=== PATIENT | female | born 1950 | race Caucasian/White ===

== ENCOUNTER 2019-01-09 06:22 | Inpatient (IN) | payer MEDICARE, OTHER ==
[2019-01-09] MEDS ORDERED: Acetaminophen 500 MG Tab PO ONE (06:30)
[2019-01-09] MEDS ORDERED: Scopolamine 1.5 MG Transdermal Patch TOP SCH (06:30)
[2019-01-09] MEDS ORDERED: Gabapentin 300 MG Cap PO ONE (06:30)
[2019-01-09] MEDS ORDERED: Celecoxib 200 MG Cap PO ONE (06:30)
[2019-01-09] MEDS ORDERED: cefOXitin 2 GM Vial ONE (06:35)
[2019-01-09] MEDS ORDERED: Glycopyrrolate 0.2 MG/ML 5 ML MDV ONE (07:10)
[2019-01-09] MEDS ORDERED: Succinylcholine 200 MG/10 ML MDV ONE (07:10)
[2019-01-09] MEDS ORDERED: Rocuronium 50 MG/5 ML Vial ONE (07:10)
[2019-01-09] MEDS ORDERED: Neostigmine Methylsulfate 1 MG/ML 5 ML Syringe ONE (07:10)
[2019-01-09] MEDS ORDERED: Dexamethasone 4 MG/ML SDV ONE (07:10)
[2019-01-09] MEDS ORDERED: Propofol 200 MG/20 ML SDV ONE (07:10)
[2019-01-09] MEDS ORDERED: Ondansetron 4 MG/2 ML SDV ONE (07:10)
[2019-01-09] MEDS ORDERED: Dextrose 5%-Lactated Ringers 1,000 ML IV SCH (07:30)
[2019-01-09] MEDS ORDERED: cefOXitin 2 GM in Sodium Chloride 0.9% 50 ML IV ONE (08:00)
[2019-01-09] MEDS ORDERED: Ketamine 500 MG/5 ML MDV IV SCH (08:15)
[2019-01-09] MEDS ORDERED: Lidocaine 2% 100 MG/5 ML Syringe IVPUSH SCH (08:15)
[2019-01-09] MEDS ORDERED: Ketamine 50 MG in Sodium Chloride 0.9% 49.5 ML IV SCH (08:15)
[2019-01-09 08:20] LABS: HEMOGLOBIN A1C 5.8 % (4.5-6.2)
[2019-01-09] MEDS ORDERED: hydrOXYzine HCl 100 MG/2 ML SDV IM ONE (10:16)
[2019-01-09] MEDS ORDERED: Ondansetron 4 MG/2 ML SDV IVPUSH ONE (10:43)
[2019-01-09] MEDS ORDERED: Metoclopramide 10 MG/2 ML SDV IVPUSH PRN (12:04)
[2019-01-09] MEDS ORDERED: Labetalol 20 MG/4 ML Syringe IVPUSH PRN (12:04)
[2019-01-09] MEDS ORDERED: HYDROmorphone 0.5 MG/0.5 ML Syringe IVPUSH PRN (12:04)
[2019-01-09] MEDS ORDERED: hydrOXYzine HCl 100 MG/2 ML SDV IM PRN (12:04)
[2019-01-09] MEDS ORDERED: diphenhydrAMINE 50 MG/ML SDV IVPUSH PRN (12:04)
[2019-01-09] MEDS ORDERED: HYDROmorphone 1 MG/ML Syringe IV PRN (12:04)
[2019-01-09] MEDS ORDERED: Ondansetron 4 MG/2 ML SDV IVPUSH PRN (12:04)
[2019-01-09] MEDS: Lidocaine 0.4%/D5W 2 GM/500 ML BAG IV SCH (14:16)
[2019-01-09] MEDS: cefOXitin 2 GM in Sodium Chloride 0.9% 50 ML IV SCH ×2 (15:03→21:15)
[2019-01-09] MEDS: Gabapentin 250 MG/5 ML Solution ML 470 ML Bottle PO SCH ×2 (15:03→20:49)
[2019-01-09] MEDS ORDERED: MVI, Adult with Vitamin K 10 ML, Thiamine 200 MG, Chromium/Copper/Mang/Selen/Zn 1 ML in... IV SCH ×4 (16:00)
[2019-01-09] MEDS: Lisinopril 10 MG Tab PO SCH (16:32)
[2019-01-09] MEDS: Acetaminophen 325 MG Tab PO SCH ×2 (16:32→21:16)
[2019-01-09] MEDS: Pantoprazole 40 MG Vial IVPUSH SCH (17:21)
[2019-01-09] MEDS: Heparin Sodium 5,000 Units/ML Vial SUBCUT SCH (17:21)
[2019-01-09] MEDS: Dextrose 5%-Lactated Ringers 1,000 ML IV SCH (21:15)
[2019-01-10] MEDS: Dextrose 5%-Lactated Ringers 1,000 ML IV SCH (03:19)
[2019-01-10] MEDS: Acetaminophen 325 MG Tab PO SCH ×4 (04:02→22:32)
[2019-01-10] MEDS: cefOXitin 2 GM in Sodium Chloride 0.9% 50 ML IV SCH ×3 (04:02→15:29)
--- NOTE | 2019-01-10 05:22 | CRLCR ---
INDICATION: Evaluate Jude-en-Y TECHNIQUE: Abdomen one view, oral contrast administered COMPARISON: None FINDINGS: Oral contrast identified within the gastric pouch and jejunum. No obvious leakage identified. IMPRESSION: Oral contrast present within the gastric pouch jejunum. No evidence for obvious in contrast leakage. Dictated by Osmin Santana MD @ Jan 10 2019 5:19AM Signed by Dr. Osmin Santana @ Jan 10 2019 5:20AM
[2019-01-10] MEDS: Heparin Sodium 5,000 Units/ML Vial SUBCUT SCH ×2 (05:45→17:26)
[2019-01-10] MEDS: Celecoxib 200 MG Cap PO SCH (07:20)
[2019-01-10] MEDS ORDERED: Dextrose 5%-Lactated Ringers 1,000 ML IV SCH (07:45)
[2019-01-10] MEDS: Citalopram 20 MG Tab PO SCH (08:36)
[2019-01-10] MEDS: Lidocaine 0.4%/D5W 2 GM/500 ML BAG IV SCH (08:36)
[2019-01-10] MEDS: buPROPion 100 MG Tab PO SCH ×2 (08:36→20:41)
[2019-01-10] MEDS: SCOPOLAMINE PATCH CHECK TOP SCH (08:37)
[2019-01-10] MEDS: Lisinopril 10 MG Tab PO SCH (08:37)
[2019-01-10] MEDS: Gabapentin 250 MG/5 ML Solution ML 470 ML Bottle PO SCH ×3 (08:40→20:45)
[2019-01-10] MEDS: Levothyroxine 100 MCG, Levothyroxine 25 MCG PO SCH ×2 (11:59)
[2019-01-10] MEDS: MVI, Adult with Vitamin K 10 ML, Thiamine 200 MG, Chromium/Copper/Mang/Selen/Zn 1 ML in... IV SCH ×8 (13:35→15:27)
[2019-01-10] MEDS: Pantoprazole 40 MG Vial IVPUSH SCH (17:26)
[2019-01-11] MEDS: Acetaminophen 325 MG Tab PO SCH ×5 (02:01→21:08)
[2019-01-11] MEDS: Heparin Sodium 5,000 Units/ML Vial SUBCUT SCH ×2 (05:59→17:30)
[2019-01-11] MEDS ORDERED: Ondansetron 4 MG Tab.DIS PO PRN (07:50)
[2019-01-11] MEDS: Levothyroxine 100 MCG, Levothyroxine 25 MCG PO SCH ×2 (08:05)
[2019-01-11] MEDS: Celecoxib 200 MG Cap PO SCH (08:06)
[2019-01-11] MEDS: Gabapentin 250 MG/5 ML Solution ML 470 ML Bottle PO SCH ×3 (08:34→21:08)
[2019-01-11] MEDS: buPROPion 100 MG Tab PO SCH ×2 (08:34→21:08)
[2019-01-11] MEDS: SCOPOLAMINE PATCH CHECK TOP SCH (08:35)
[2019-01-11] MEDS: Citalopram 20 MG Tab PO SCH (08:36)
[2019-01-11] MEDS: Lisinopril 10 MG Tab PO SCH (08:36)
[2019-01-11] MEDS ORDERED: Cyanocobalamin (Vitamin B12) 1,000 MCG/ML SDV IM ONE (09:00)
--- NOTE | 2019-01-11 09:57 | PN ---
CORRECTED REPORT DATE OF SERVICE: 01/11/2019 SUBJECTIVE: Dunia is postoperative day 2. Her pain has been controlled. She has been up ambulating. Vital signs have been stable. Oral intake 1350, urine output 2525, and MASON drain put out 60 mL of a light pink drainage. REVIEW OF SYSTEMS: Remainder of review of systems negative for any pertinent positives and negatives. OBJECTIVE: GENERAL: Dunia Mandujano is a pleasant 68-year-old female. She is alert and orientated. VITAL SIGNS: TPR 97.6, 64, 18. Blood pressure 120/64. HEENT: Negative. NECK: Supple. HEART: Regular rate and rhythm. LUNGS: Clear. ABDOMEN: Dressing is dry and intact. Abdominal binder is on. EXTREMITIES: Without peripheral edema. ASSESSMENT: Laparoscopic Jude-en-Y gastric bypass surgery, liver biopsy, repair of diaphragmatic hernia, and excision of mediastinal lipoma for morbid obesity, hepatomegaly, diaphragmatic hernia, and mediastinal lipoma. Date of surgery, 01/09/2019. Surgeon, Jarred Ha MD. PLAN: 1. Zofran ODT 4 mg every 4 hours p.r.n. nausea. 2. Dressing off, may shower. 3. We will evaluate p.r.n. or in a.m. Plan discharge in a.m. Yulia Green PA-C /[id number]
[2019-01-12] MEDS: Acetaminophen 325 MG Tab PO SCH ×2 (05:27→09:49)
[2019-01-12] MEDS: Heparin Sodium 5,000 Units/ML Vial SUBCUT SCH (05:27)
[2019-01-12] MEDS: Celecoxib 200 MG Cap PO SCH (07:57)
[2019-01-12] MEDS: Levothyroxine 100 MCG, Levothyroxine 25 MCG PO SCH ×2 (07:57)
[2019-01-12] MEDS: Gabapentin 250 MG/5 ML Solution ML 470 ML Bottle PO SCH (08:41)
[2019-01-12] MEDS: Citalopram 20 MG Tab PO SCH (08:42)
[2019-01-12] MEDS: Lisinopril 10 MG Tab PO SCH (08:42)
[2019-01-12] MEDS: buPROPion 100 MG Tab PO SCH (08:42)
--- NOTE | 2019-01-12 13:08 | PN ---
DATE OF SERVICE: 01/10/2019 The patient is postop day #1 from a Jude-en-Y gastric bypass along with diaphragmatic hernia repair. Clinically, she is doing well with no significant drain problems. The upper GI x- ray looks good. We will go up to step-2 diet and maximize activity and work with pulmonary toilet. IV rate will be turned down. She may be ready for discharge home tomorrow. Based on her age and distance from the hospital, we will see how things look at that time. Jarred Ha MD /[id number]
--- NOTE | 2019-01-12 13:27 | OR ---
DATE OF PROCEDURE: 01/09/2019 SURGEON: Jarred Ha MD PREOPERATIVE DIAGNOSIS: Morbid obesity. POSTOPERATIVE DIAGNOSES: 1. Morbid obesity. 2. Marked hepatomegaly. 3. Paraesophageal diaphragmatic hernia. 4. Mediastinal lipoma. OPERATIVE PROCEDURES: Diagnostic laparoscopy with: 1. Laparoscopic Jude-en-Y gastric bypass with long-limb gastroenterostomy (16093). 2. Marino-Cut needle liver biopsy (18253). 3. Repair of paraesophageal diaphragmatic hernia (50854). 4. Excision of mediastinal lipoma (07195). ANESTHESIA: General. INDICATION FOR PROCEDURE: This 68-year-old presenting with longstanding morbid obesity and increasingly significant comorbidities. After preoperative evaluation and discussion, she wished to proceed with a gastric bypass procedure. Potential risks of the procedure including bleeding, infection, leaks from various GI tract closures, problems with bowel obstruction over time, as well as the possibility of cardiopulmonary, septic, or hemorrhagic complications leading to were discussed, and the patient wishes to proceed. DETAILS OF PROCEDURE: The patient was taken to the operating room and after general endotracheal anesthesia was induced, she was placed in a lithotomy position, and the abdomen was prepped and draped. At 15 cm inferior and 5 cm left of the xiphoid process, a transverse incision was made, and the peritoneal cavity entered under direct vision with an Optiview trocar, inflated to 15 mmHg pressure with CO2. Laparoscope was reinserted. Bilateral transversus abdominis plane blocks were placed. No underlying trocar insertion site injuries were seen. Five additional trocars were placed across the upper and mid abdomen. The patient was noted to have marked hepatomegaly with liver being grossly fatty infiltrated and roughly 2 to 3 times normal size. Marino-Cut needle liver biopsy was obtained from the left lobe of liver. Minimal bleeding from biopsy sites was controlled with electrocautery. At this point, the omentum was divided in the midline up to the level of the transverse colon. This allowed identification of small bowel at the ligament of Treitz. The small bowel was then traced out 150 cm distal to that point, where it was divided transversely with a JERAMY stapler. Small bowel was then traced out additional 200 cm, where the side-to- side enteroenterostomy was accomplished with internal firing of the Endo-JERAMY 60 mm stapler. Common opening was then closed transversely with the same stapler, and the angles anastomosed and mesenteric defect approximated with some 0 Ethibond stitch, along with 4 mL of fibrin sealant. The mesentery from the distal Jude limb was then divided for a few centimeters, which allowed an antecolic position of the Jude limb up to the level of gastroesophageal junction without tension. The liver was then retracted anteriorly, and the patient was noted to have a moderate-sized paraesophageal diaphragmatic hernia with prolapse of perigastric fat, along with some of the gastric fundus in a plane anterior to the course of the main esophagus. This was reduced and peritoneum overlying it dissected. As part of the dissection, a mediastinal lipoma was encountered, which was excised to facilitate more adequate repair of the diaphragmatic hernia, which, once dissected, was repaired with some 0 Ethibond sutures and reinforced with PTFE pledgets. The gastrointestinal balloon catheter was then inflated to 15 mL and pulled up snugly against the EG junction. Gastric wall over the apex of balloon was then marked with electrocautery and balloon catheter deflated and pulled up in the esophagus. The lesser omental tissue adjacent to the gastric cardia was then incised, allowing dissection behind the stomach at that level. Pouch formation was initiated with transverse firing of the JERAMY stapler at the level of the cauterized cathie in the gastric cardia. Pouch was then completed with additional JERAMY susana up to and through the angle of His. Upon completion of the pouch, both staple lines were noted to be intact. At this point, the anvil of a 25 mm EEA stapler was attached to [place] sump tube. The latter was brought down through the mouth and taken out a small opening in the gastric pouch, allowing the anvil likewise to be placed into the gastric pouch. The divided end of Jude limb was then opened and main body EEA stapler passed several centimeters into the lumen of the small bowel, brought up the anvil and united with it, thus creating the gastrojejunostomy. Upon removal of the stapler, double donuts of mucosa were noted within it. Small bowel was closed off with a vascular staple line. Gastrojejunostomy was then reinforced with some 3-0 Vicryl seromuscular stitch, along with fibrin sealant. A leak test was accomplished with injection of 120 mL of air in the gastric pouch while it was submerged within cefoxitin-containing saline solution. No leaks were identified. A single Chad- Vega drain was taken out the left trocar site and placed adjacent to the gastrojejunostomy and brought up through the area of the splenic fossa from that point. At this point, the trocars were removed, and the peritoneal cavity deflated. Incisions were closed with 4-0 Vicryl skin stitch, which was also used to affix the drain. The patient was taken to the recovery room in satisfactory condition. There were no evident complications. Jarred Ha MD /[id number]
--- NOTE | 2019-01-13 05:19 | DISCH ---
ADMISSION DIAGNOSES: Morbid obesity, metabolic syndrome, essential hypertension, major depression, hypothyroidism, peripheral nerve disease, osteoarthritis of right foot, obstructive sleep apnea, and on a "treatment agreement plan." DISCHARGE DIAGNOSES: Laparoscopic Jude-en-Y gastric bypass surgery, liver biopsy, repair of diaphragmatic hernia, excision of mediastinal lipoma for morbid obesity, hepatomegaly, diaphragmatic hernia, and mediastinal lipoma. DATE OF SURGERY: 01/09/2019 SURGEON: Jarred Ha MD. HISTORY: Dunia Mandujano is a 68-year-old female with longstanding history of morbid obesity and increasing comorbidities. After preoperative evaluation and discussion of possible risks and possible complications, she wished to proceed with surgical procedure. HOSPITAL COURSE: Dunia had her surgery on 01/09/2019. She had no operative complications. On postoperative day #1, she was started on step 2 gastric bypass diet, her IV was decreased, her activity was good, and she was able to take a shower. On postoperative day #2, she received dietary instruction, a vitamin B12 injection, her activity remained to be good, and vital signs were stable. On postoperative day #3, she was able to be discharged to home without any complications. PHYSICAL EXAMINATION: VITAL SIGNS: Dunia Mandujano is a 68-year-old female. Height is 5 feet 6 inches. Weight is 260 pounds. BMI is 42. T, P, R: 97, 70, 16. Blood pressure 145/67. HEENT: Negative. NECK: Supple. HEART: Regular rate and rhythm. LUNGS: Clear. ABDOMEN: Incisions look good. Sutures intact. 4 x 4 over MASON drain site. Abdominal binders on. EXTREMITIES: Without peripheral edema. DISPOSITION: Discharged to home. CONDITION: Stable and improving. FOLLOWUP APPOINTMENT: Yulia Green PA-C, at [place], [place], on 01/24/2019 at 9 a.m. HOME PRESCRIPTIONS: 1. Tylenol 650 mg q.6 hours for pain. 2. Celebrex 200 mg p.o. daily. 3. Zofran ODT 4 mg every 4 hours p.r.n. nausea. She is to resume taking home medications. 1. Citalopram 40 mg daily. 2. Neurontin 300 mg oral 3 times a day. 3. Levothyroxine 125 mcg oral before breakfast. 4. Lisinopril 10 mg oral daily. 5. Meclizine 25 mg oral 3 times a day. 6. Senna 2 tablets oral daily. 7. Wellbutrin 100 mg oral twice daily. Discontinue taking vitamins and supplements, and discontinue taking the [place]. DIET: Bariatric step 2 gastric bypass diet without cereal for 2 weeks until next appointment. Drink 8 to 10 glasses of water a day. ACTIVITY: No lifting greater than 10 pounds for 2 weeks. OTHER ACTIVITY: Walk 6 times daily inside your home. DRIVING: Do not drive for 1 week. SHOWER/BATHING: May shower. Notify provider if any fever, increased pain, nausea, or vomiting. Keep site clean and dry. Wear abdominal binder for 2 weeks and then as tolerated. SPECIAL INSTRUCTION: Use incentive spirometer 10 times every hour while awake for 1 week.
== END 2019-01-12 10:19 | disposition home or self-care (01) | DRG 621 ==
LOC: JP.SDSSCHI 06:22 → JP.SDS 06:22 → EDSTATUS 07:30 → JP.MS 10:20
PROVIDERS: ADMIT Surgery; ATTEND Surgery
PROC: 0D164ZA Bypass Stomach to Jejunum, Percutaneous Endoscopic Approach (ICD-10-PCS; principal; 2019-01-09)
PROC: 0FB24ZX Excision of Left Lobe Liver, Percutaneous Endoscopic Approach, Diagnostic (ICD-10-PCS; 2019-01-09)
PROC: 0BQT4ZZ Repair Diaphragm, Percutaneous Endoscopic Approach (ICD-10-PCS; 2019-01-09)
PROC: 0JB63ZZ Excision of Chest Subcutaneous Tissue and Fascia, Percutaneous Approach (ICD-10-PCS; 2019-01-09)
DX: E66.01 Morbid (severe) obesity due to excess calories (principal); R16.0 Hepatomegaly, not elsewhere classified; K44.9 Diaphragmatic hernia without obstruction or gangrene; D17.4 Benign lipomatous neoplasm of intrathoracic organs; E88.81 Metabolic syndrome and other insulin resistance; Z79.890 Hormone replacement therapy; Z79.899 Other long term (current) drug therapy; Z68.41 Body mass index [BMI] 40.0-44.9, adult
CPT/HCPCS: 36415; 74240; 80053; 82962; 83036; 83735; 84100; 84443; 85027; 86850; 86900; 86901; 88304; 88307; 88313; A9270-GY; C9113; J0171; J0330; J0694; J1100; J1644; J2001; J2405; J2704; J2710; J2795; J3010; J3410; J3411; J3420; J3490; J7030; J7042; J7050

== ENCOUNTER 2019-04-24 09:09 | Day surgery (SDC) | payer MEDICARE, OTHER ==
[2019-04-24] MEDS ORDERED: Propofol 200 MG/20 ML SDV ONE (09:59)
[2019-04-24] MEDS ORDERED: Midazolam 1 MG/ML 2 ML SDV ONE (09:59)
[2019-04-24] MEDS ORDERED: fentaNYL 100 MCG/2 ML SDV ONE (09:59)
[2019-04-24] MEDS ORDERED: Lactated Ringers 1,000 ML IV SCH (10:15)
[2019-04-24] MEDS ORDERED: Cyanocobalamin (Vitamin B12) 1,000 MCG/ML SDV IM ONE (10:15)
[2019-04-24] MEDS ORDERED: Glycopyrrolate 0.2 MG/ML 2 ML SDV IVPUSH ONE (10:15)
[2019-04-24] MEDS ORDERED: MVI, Adult with Vitamin K 10 ML, Thiamine 200 MG, Chromium/Copper/Mang/Selen/Zn 1 ML in... IV ONE ×4 (11:15)
--- NOTE | 2019-04-25 21:37 | OR ---
DATE OF PROCEDURE: 04/24/2019 SURGEON: Jarred Ha MD PREOPERATIVE DIAGNOSIS: Possible stricture at gastrojejunostomy. POSTOPERATIVE DIAGNOSIS: Mild stricture at gastrojejunostomy. OPERATIVE PROCEDURE: Upper GI endoscopy with dilation of gastrojejunostomy (17334). INDICATION FOR PROCEDURE: A 68-year-old female status post a Jude-en-Y gastric bypass on 01/09/2019. She has done very well but was having some recent problems with some dysphagia and there is some suspicion she may be having development of a stricture at the gastrojejunostomy. Plan is to proceed with upper GI endoscopy with dilation as indicated. Potential risks including bleeding and perforation were discussed, and the patient wishes to proceed. DETAILS OF PROCEDURE: The patient was taken to the operating room and placed in a left lateral decubitus position. IV sedation was administered, after which the upper GI endoscope was passed orally through the length of the esophagus and into the gastric pouch and from there through the gastrojejunostomy roughly 20 cm into the Jude limb. Generally, there was minimal inflammation along the entire examination. There is perhaps very slight narrowing of the gastrojejunostomy. A Bard gastrointestinal catheter was centered across the anastomosis and inflated to 45 in size. This resulted in very slight degree of dilation and minimal complication was noted, scope was then withdrawn and the procedure then concluded. The patient had developed allergic reaction, i.e., some hives the patient will be given some dietary instruction, advised following up with Yulia Green in [place] in one month's time. Jarred Ha MD /[id number]
== END 2019-04-24 13:54 | disposition home or self-care (01) ==
LOC: JP.SDS 09:09
PROVIDERS: ATTEND Surgery
DX: K91.89 Other postprocedural complications and disorders of digestive system (principal); K90.9 Intestinal malabsorption, unspecified; I10 Essential (primary) hypertension; E66.9 Obesity, unspecified; Z98.0 Intestinal bypass and anastomosis status; Z68.34 Body mass index [BMI] 34.0-34.9, adult
CPT/HCPCS: 43245; J2250; J2704; J3010; J3411; J3420; J3490; J7120

== ENCOUNTER 2020-01-18 08:06 | Day surgery (SDC) | payer MEDICARE, OTHER ==
[~2020-01-18 08:06] MED LIST: Lactated Ringers 1,000 ML IV ONE
[2020-01-18] MEDS ORDERED: Cyanocobalamin (Vitamin B12) 1,000 MCG/ML SDV IM ONE (08:15)
[2020-01-18] MEDS ORDERED: Lactated Ringers 1,000 ML IV ONE (09:00)
[2020-01-18] MEDS ORDERED: Glycopyrrolate 0.2 MG/ML 2 ML SDV IVPUSH ONE (09:15)
[2020-01-18] MEDS ORDERED: MVI, Adult with Vitamin K 10 ML, Thiamine 200 MG, Chromium/Copper/Mang/Selen/Zn 1 ML in... IV ONE ×4 (09:30)
[2020-01-18] MEDS ORDERED: fentaNYL 100 MCG/2 ML SDV ONE (09:55)
[2020-01-18] MEDS ORDERED: Midazolam 1 MG/ML 2 ML SDV ONE (09:55)
[2020-01-18] MEDS ORDERED: Propofol 200 MG/20 ML SDV ONE (09:55)
[2020-01-18] MEDS ORDERED: Ampicillin/Sulbactam Na 1.5 GM in Sodium Chloride 0.9% 50 ML IV ONE (10:30)
--- NOTE | 2020-01-23 13:52 | OR ---
DATE OF PROCEDURE: 01/18/2020 SURGEON: Jarred Ha MD PREOPERATIVE DIAGNOSIS: Dysphagia status post Jude-en-Y gastric bypass. POSTOPERATIVE DIAGNOSIS: History of dysphagia status post Jude-en-Y gastric bypass with normal upper gastrointestinal endoscopic examination. OPERATIVE PROCEDURE: Upper gastrointestinal endoscopy. ANESTHESIA: IV sedation. INDICATIONS FOR PROCEDURE: A 69-year-old status post Jude-en-Y gastric bypass presenting with some dysphagia, particularly to solids. Roughly at the distal esophagus, there was gastrojejunostomy area. Plan is to proceed with upper GI endoscopy with biopsies and/or dilation as indicated. Potential risks including bleeding and perforation were discussed, and the patient wishes to proceed. DETAILS OF PROCEDURE: The patient was taken to the operating room and placed in a left lateral decubitus position. IV sedation was administered, after which the upper GI endoscope was passed orally through the length of the esophagus and into the gastric pouch, from there through the gastrojejunostomy roughly 20 cm into the Jude limb. Overall, the examination was entirely normal. There were no areas of significant inflammation. The gastric pouch and gastrojejunostomy were without any significant inflammation as was the distal esophagus and overall no significant abnormalities were noted at any point during the upper endoscopic exam. Scope was then withdrawn. The above findings were reconfirmed. It appeared likely that the patient has been having some esophageal spasm, and we will begin a course of Levsin 0.125 mg sublingually q.6 hours p.r.n., #40, refill x2. Should be following up with Yulia Green in 6 weeks either in [place] or via a virtual visit. Jarred Ha MD /[id number]
== END 2020-01-18 12:15 | disposition home or self-care (01) ==
LOC: JP.SDS 08:06
PROVIDERS: ATTEND Surgery
DX: R13.10 Dysphagia, unspecified (principal); I10 Essential (primary) hypertension; Z93.4 Other artificial openings of gastrointestinal tract status
CPT/HCPCS: 43235; J0287; J2250; J2704; J3010; J3411; J3420; J7050; J7120